=== PATIENT | female | born 1980 | race Two or more races ===

== ENCOUNTER 2020-09-19 17:22 | Emergency (ER) | payer BC ==
[~2020-09-19] VITALS: Ht 162.6 cm; Wt 80.0 kg
--- NOTE | 2020-09-19 17:49 | NUR ---
PT BIB EMS, REPORTS PT HAS BEEN EXPERIENCING SOME WEAKNESS AND HEAVY PERIODS X2 MONTHS. SEEN AT [facility] TODAY AND DX WITH ENLARGED FIBROID UTERUS WITH THICKENED ENDOMETRIUM AND BILATERAL OVARIAN CYSTS. HGB 6.2, RECEIVED 1 UNIT PRBC. HERE FOR OBGYN CONSULT. PT DENIES CURRENT BLEEDING, NO N/V. PT A&O, RESPS EVEN AND UNLABORED, ALL MONITORS ATTACHED, SINUS TACH, NADN.
--- NOTE | 2020-09-19 18:39 | NUR ---
PRECEPTOR RN NOTE: PT A&O, RESPS EVEN AND UNLABORED, NADN. SINUS TACH RATE 100'S WITH NO ECTOPY ON ANIMAL CONTROL OFFICER. PT STATES SHE HAS SCANT VAG BLEEDING AT THIS TIME. DENIES PAIN. US AT BEDSIDE AT THIS TIME.
--- NOTE | 2020-09-19 19:09 | NUR ---
REPORT GIVEN TO SUJATHA GIL
--- NOTE | 2020-09-19 19:12 | NUR ---
RECEIEVED REPORT FROM JANELLE GIL US AT BEDSIDE.
--- NOTE | 2020-09-19 19:49 | NUR ---
TASK RN: PT AMBULATORY WITH STEADY GAIT WITH THIS RN TO BATHROOM. PT RETURNED TO ROOM. PLACED ON CONTINUOUS MONITORING. PT DENIES ANY ADDITIONAL NEEDS AT THIS TIME. CALL LIGHT AND BELONGINGS WITHIN REACH. FAMILY AT BEDSIDE
[2020-09-19 20:58] VITALS: BP 118/64
--- NOTE | 2020-09-19 21:04 | NUR ---
BLOOD TRANSFUSION INITITAED. ATTACHED TO MONITORS. VSS. CONSENT SIGNED AT BEDSIDE, PT IN NAD. BREATHING EVEN AND UNLABORED. TALKING TO FAMILY MEMBERS IN THE ROOM. TRANSFUSION REACTIONS TAUGHT TO PT. THIS RN WILL BE AT BEDSIDE FOR 15 MINUTES MONITORING PT. CALL LIGHT WITHIN REACH. BED IN LOW POSITIONO.
--- NOTE | 2020-09-19 21:12 | NUR ---
AFTER 15 MINS PT IS NOT HAVING ANY REACTIONS TO BLOOD. VSS. PT STATES SHE FEELS FINE. JUAN ANTONIO LIGHT WITHIN REACH. FAMILY AT BEDSIDE. WCTM
[2020-09-19 21:13] VITALS: BP 129/79
[2020-09-19 21:31] VITALS: BP 131/75
[2020-09-19 22:04] VITALS: BP 131/82
--- NOTE | 2020-09-19 22:04 | NUR ---
PT TOLERATING BLOOD WELL. STATES SHE FEELS FINE. BREATHING EVEN AND UNLABORED VSS. EDUCATED ON SIGNS AND SYMPTOMS OF BLOOD TANSFUSION REACTIONS AGAIN. CALL LIGHT WITHIN REACH. WCTM
--- NOTE | 2020-09-19 22:49 | NUR ---
PT AMBULATED TO BATHROOM AND BACK TO BED. PT TOLERATED WELL. REATTACHED TO MONITORS. VSS. WCTM
[2020-09-19 22:52] VITALS: BP 116/67
[2020-09-19 23:13] VITALS: BP 112/69
== END 2020-09-19 23:34 | disposition home or self-care (01) ==
LOC: ED 23:31
DX: N93.8 Other specified abnormal uterine and vaginal bleeding (principal); D25.1 Intramural leiomyoma of uterus; D50.0 Iron deficiency anemia secondary to blood loss (chronic)
CPT/HCPCS: 36415; 36430; 76830; 86850; 86900; 86923; 99285; P9016

== ENCOUNTER 2020-09-27 14:44 | Inpatient (IN) | payer BC ==
[~2020-09-27] VITALS: Ht 157.5 cm; Wt 70.0 kg
[2020-09-27 15:08] VITALS: BP 121/88
[2020-09-27] MEDS ORDERED: ONDANSETRON 2MG/ML, 2ML IVPush PRN (16:00)
[2020-09-27] MEDS ORDERED: PLEASE ENTER HEIGHT AND WEIGHT MC SCH (16:00)
[2020-09-27] MEDS: LACTATED RINGERS 1,000 ML IV SCH (16:29)
[2020-09-27 16:41] LABS: ALANINE AMINOTRANSFERASE 27 U/L (12-78); ALBUMIN 3.1 g/dL (3.4-5.0); ANION GAP 6 mmol/L (5-15); CALCIUM 9.2 mg/dL (8.5-10.1); CHLORIDE 106 mmol/L (98-107); CREATININE 0.62 mg/dL (0.55-1.02); PROTHROMBIN TIME 10.7 Seconds (9.6-11.5)
[2020-09-27 16:46] LABS: ALKALINE PHOSPHATASE 183 U/L (45-117); BILIRUBIN,TOTAL 0.4 mg/dL (0.2-1.0); TOTAL PROTEIN 8.2 g/dL (6.4-8.2)
[2020-09-27 16:53] LABS: BASOPHILS % (AUTO) 2 % (0-1); EOSINOPHILS % (AUTO) 2 % (1-7); LYMPHOCYTES % (AUTO) 10 % (22-44); MEAN CORPUSCULAR HEMOGLOBIN 18.9 pg (27.0-34.8); MONOCYTES % (AUTO) 5 % (2-9); NEUTROPHILS % (AUTO) 80 % (42-75); PLATELET COUNT 343 x10^3/uL (130-400); RED BLOOD COUNT 4.58 x10^6/uL (3.82-5.3)
[2020-09-27 17:13] LABS: MD MORPH REVIEW ONLY; MEAN CORPUSCULAR HGB CONC 29.9 g/dL (32.4-35.8)
[2020-09-27 17:22] LABS: HYPOCHROMIA 2+; MICROCYTOSIS 2+; POLYCHROMASIA 1+
[2020-09-27 17:23] LABS: OVALOCYTES 1+; SPHEROCYTES 1+
[2020-09-27 17:24] LABS: <PLATELET ESTIMATE> ADEQUATE; <PLT MORPHOLOGY> NORMAL PLT MORPH
[2020-09-27] MEDS: FERROUS SULFATE 325 MG TABLET PO SCH (17:50)
[2020-09-27] MEDS ORDERED: OMNIPAQUE 350 MG/ML, 100ML BOTTLE ONE (18:30)
[2020-09-27 18:34] VITALS: BP 114/82
[2020-09-27] MEDS ORDERED: ACETAMINOPHEN 325 MG TABLET PO PRN (19:30)
[2020-09-28 00:19] VITALS: BP 146/72
[2020-09-28] MEDS ORDERED: OXYcodone/APAP 5/325MG TABLET PO PRN (00:30)
[2020-09-28] MEDS: OXYcodone/APAP 5/325MG TABLET PO PRN ×2 (01:13→09:10)
[2020-09-28] MEDS: LACTATED RINGERS 1,000 ML IV SCH (05:39)
[2020-09-28 07:52] VITALS: BP 97/65
[2020-09-28] MEDS: FERROUS SULFATE 325 MG TABLET PO SCH (09:07)
[2020-09-28 09:36] LABS: % IRON SATURATION 7 % (20-55); IRON LEVEL 22 mcg/dL (50-170); TOTAL IRON BINDING CAPACITY 311 mcg/dL (250-450)
[2020-09-28] MEDS ORDERED: NORGESTIMATE-ETHINYL ESTRADIOL TABLET PO SCH (11:30)
== END 2020-09-28 11:40 | disposition home or self-care (01) | DRG 756 ==
LOC: 4NW 14:44
PROVIDERS: ADMIT Obstetrics & Gynecology; ATTEND Obstetrics & Gynecology
DX: C54.1 Malignant neoplasm of endometrium (principal); D50.0 Iron deficiency anemia secondary to blood loss (chronic); N83.201 Unspecified ovarian cyst, right side; N85.2 Hypertrophy of uterus; N93.8 Other specified abnormal uterine and vaginal bleeding; Z79.899 Other long term (current) drug therapy; Z79.891 Long term (current) use of opiate analgesic; Z79.01 Long term (current) use of anticoagulants
CPT/HCPCS: 36415; 71260; 74177; 80053; 82378; 82728; 83540; 83550; 84702; 85014; 85018; 85025; 85610; 85730; 86304; 86850; 86900; G0378; Q9967; J7120